=== PATIENT | female | born 1975 | race American Indian/Alaskan Native ===

== ENCOUNTER 2018-06-06 02:18 | Emergency (ER) | payer OTHER ==
[2018-06-06 02:52] VITALS: BP 127/89
[2018-06-06] MEDS ORDERED: DECADRON ONE (03:00)
[2018-06-06] MEDS ORDERED: DUONEB *Not for PRN Use IH ONE (03:04)
[2018-06-06] MEDS ORDERED: DECADRON IM ONE (03:06)
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
== END 2018-06-06 14:50 | disposition home or self-care (01) ==
LOC: ED 02:18
DX: R10.9 Unspecified abdominal pain (principal); R06.02 Shortness of breath; J45.909 Unspecified asthma, uncomplicated; Z88.6 Allergy status to analgesic agent; V89.2XXA Person injured in unspecified motor-vehicle accident, traffic, initial encounter; Y93.89 Activity, other specified; Y92.410 Unspecified street and highway as the place of occurrence of the external cause; Y99.8 Other external cause status
CPT/HCPCS: 74019; 76700; 96372; 99284; J1100

== ENCOUNTER 2019-03-07 13:27 | Emergency (ER) | payer OTHER ==
[2019-03-07] MEDS ORDERED: ALBUTEROL 2.5 MG/3 ML NEBU IH ONE (13:46)
[2019-03-07] MEDS ORDERED: methylPREDNISolone Sod Succinate 125 MG/2 ML INJ IM ONE (13:56)
[2019-03-07] MEDS: IPRATROPIUM 0.02% NEBU 2.5 ML IH ONE (13:58)
[2019-03-07] MEDS ORDERED: IPRATROPIUM 0.02% NEBU 2.5 ML IH ONE (14:01)
[2019-03-07 14:53] LABS: Basophils % (Auto) 0.5 % (0.0-1.8); Eosinophils # (Auto) 0.7 K/mm3 (0.0-0.4); Eosinophils % (Auto) 15.1 % (0.0-4.3); Hematocrit 41.2 % (30.3-42.9); Lymphocytes # (Auto) 1.8 K/mm3 (1.2-5.4); Lymphocytes % (Auto) 35.8 % (13.4-35.0); Mean Corpuscular HGB Conc 34 % (30-34); Mean Corpuscular Volume 94 fl (79-97); Monocytes # (Auto) 0.4 K/mm3 (0.0-0.8); Monocytes % (Auto) 8.2 % (0.0-7.3); Platelet Count 231 K/mm3 (140-440); Red Blood Count 4.39 M/mm3 (3.65-5.03); Red Cell Distribution Width 12.8 % (13.2-15.2)
--- NOTE | 2019-03-07 15:03 | Emergency Department Report ---
ED Asthma HPI - General Chief Complaint: Dyspnea/Respdistress Stated Complaint: ASTHMA ATTACK/SOB Time Seen by Provider: 03/07/19 13:56 Source: patient Mode of arrival: Ambulatory Limitations: No Limitations - History of Present Illness Initial Comments: She is a chronic asthmatic patient presents to ED with asthma patient. Patient states that she used her medication at home with no relief. She says for the past couple of days she has been flaring up with a dry cough. Patient states today after taking a breathing treatment she had no relief so she presents for evaluation. He denies fevers/chills/nausea vomiting or chest pain MD Complaint: "asthma attack", wheezing -: Gradual Asthma History: childhood onset Severity: moderate Context: none known Associated Symptoms: dry cough Treatments Prior to Arrival: inhaled bronchodilator - Related Data Current Asthma Therapy: inhaled bronchodilator Previous Rx's Medication Instructions Recorded Last Taken Type HYDROcodone/APAP 5-325 [[place] 1 each PO Q6HR PRN #10 tablet 06/06/18 Unknown Rx 5/325] ALBUTEROL Inhaler (OR & NICU) 2 puff IH Q4H PRN #1 inhalation 10/24/18 Unknown Rx [ProAir HFA Inhaler] ALBUTEROL NEB's [Proventil 0.083% 2.5 mg IH Q4H PRN #25 vial 10/24/18 Unknown Rx NEBS] Acetaminophen [Acetaminophen TAB] 1,000 mg PO Q6HR PRN #30 tablet 10/24/18 Unknown Rx Azithromycin [Zithromax Z-KATERINA] 250 mg PO DAILY #6 tab 10/24/18 Unknown Rx Benzonatate [Tessalon Perles] 100 mg PO Q8HR PRN #30 capsule 03/07/19 Unknown Rx predniSONE [Deltasone] 40 mg PO QDAY 5 Days #10 tab 03/07/19 Unknown Rx Allergies Allergy/AdvReac Type Severity Reaction Status Date / Time ibuprofen Allergy Shortness Verified 10/24/18 02:54 of Breath ED Review of Systems ROS: Stated complaint: ASTHMA ATTACK/SOB Other details as noted in HPI Comment: All other systems reviewed and negative ED Past Medical Hx - Past Medical History Previous Medical History?: Yes Hx Asthma: Yes - Surgical History Past Surgical History?: Yes Additional Surgical History: Sinus surgery - Social History Smoking Status: Never Smoker Substance Use Type: None - Medications Home Medications: Home Medications Medication Instructions Recorded Confirmed Last Taken Type HYDROcodone/APAP 5-325 [[place] 1 each PO Q6HR PRN #10 tablet 06/06/18 Unknown Rx 5/325] ALBUTEROL Inhaler (OR & NICU) 2 puff IH Q4H PRN #1 inhalation 10/24/18 Unknown Rx [ProAir HFA Inhaler] ALBUTEROL NEB's [Proventil 0.083% 2.5 mg IH Q4H PRN #25 vial 10/24/18 Unknown Rx NEBS] Acetaminophen [Acetaminophen TAB] 1,000 mg PO Q6HR PRN #30 tablet 10/24/18 Unknown Rx Azithromycin [Zithromax Z-KATERINA] 250 mg PO DAILY #6 tab 10/24/18 Unknown Rx Benzonatate [Tessalon Perles] 100 mg PO Q8HR PRN #30 capsule 03/07/19 Unknown Rx predniSONE [Deltasone] 40 mg PO QDAY 5 Days #10 tab 03/07/19 Unknown Rx ED Physical Exam - General Limitations: No Limitations General appearance: alert, in no apparent distress - Head Head exam: Present: atraumatic, normocephalic - Eye Eye exam: Present: normal appearance - ENT ENT exam: Present: mucous membranes moist - Neck Neck exam: Present: normal inspection - Respiratory Respiratory exam: Present: normal lung sounds bilaterally. Absent: respiratory distress - Cardiovascular Cardiovascular Exam: Present: regular rate, normal rhythm. Absent: systolic murmur, diastolic murmur, rubs, gallop - GI/Abdominal GI/Abdominal exam: Present: soft, normal bowel sounds - Extremities Exam Extremities exam: Present: normal inspection - Back Exam Back exam: Present: normal inspection - Neurological Exam Neurological exam: Present: alert, oriented X3 - Psychiatric Psychiatric exam: Present: normal affect, normal mood - Skin Skin exam: Present: warm, dry, intact, normal color. Absent: rash ED Course Vital Signs 03/07/19 03/07/19 03/07/19 13:37 15:25 17:23 Temperature 98.7 F Pulse Rate 95 H 90 Pulse Rate [ 91 H Posterior Bilateral Throughout] Respiratory 24 18 Rate Respiratory 20 Rate [Posterior Bilateral Throughout] Blood Pressure 128/94 Blood Pressure 124/90 [Left] O2 Sat by Pulse 95 99 Oximetry ED Medical Decision Making - Lab Data Result diagrams: 03/07/19 14:36 03/07/19 14:36 Laboratory Last Values WBC 4.9 K/mm3 (4.5-11.0) 03/07/19 14:36 RBC 4.39 M/mm3 (3.65-5.03) 03/07/19 14:36 Hgb 14.0 gm/dl (10.1-14.3) 03/07/19 14:36 Hct 41.2 % (30.3-42.9) 03/07/19 14:36 MCV 94 fl (79-97) 03/07/19 14:36 MCH 32 pg (28-32) 03/07/19 14:36 MCHC 34 % (30-34) 03/07/19 14:36 RDW 12.8 % (13.2-15.2) L 03/07/19 14:36 Plt Count 231 K/mm3 (140-440) 03/07/19 14:36 Lymph % (Auto) 35.8 % (13.4-35.0) H 03/07/19 14:36 [place] % (Auto) 8.2 % (0.0-7.3) H 03/07/19 14:36 Eos % (Auto) 15.1 % (0.0-4.3) H 03/07/19 14:36 Baso % (Auto) 0.5 % (0.0-1.8) 03/07/19 14:36 Lymph # 1.8 K/mm3 (1.2-5.4) 03/07/19 14:36 [place] # 0.4 K/mm3 (0.0-0.8) 03/07/19 14:36 Eos # 0.7 K/mm3 (0.0-0.4) H 03/07/19 14:36 Baso # 0.0 K/mm3 (0.0-0.1) 03/07/19 14:36 Seg Neutrophils % 40.4 % (40.0-70.0) 03/07/19 14:36 Seg Neutrophils # 2.0 K/mm3 (1.8-7.7) 03/07/19 14:36 VBG pH 7.417 (7.320-7.420) 03/07/19 14:36 Sodium 142 mmol/L (137-145) 03/07/19 14:36 Potassium 4.3 mmol/L (3.6-5.0) 03/07/19 14:36 Chloride 106.1 mmol/L (98-107) 03/07/19 14:36 Carbon Dioxide 25 mmol/L (22-30) 03/07/19 14:36 Anion Gap 15 mmol/L 03/07/19 14:36 BUN 8 mg/dL (7-17) 03/07/19 14:36 Creatinine 0.6 mg/dL (0.7-1.2) L 03/07/19 14:36 Estimated GFR > 60 ml/min 03/07/19 14:36 BUN/Creatinine Ratio 13 % 03/07/19 14:36 Glucose 94 mg/dL (65-100) 03/07/19 14:36 Calcium 8.9 mg/dL (8.4-10.2) 03/07/19 14:36 - Radiology Data Radiology results: report reviewed, image reviewed CHEST 2 VIEWS INDICATION: sob. COMPARISON: 10/24/2018 FINDINGS: Support devices: None. Heart: Within normal limits. Pulmonary vasculature: Normal. Lungs/pleura: No acute air space or interstitial disease. No pneumothorax. Additional findings: None. IMPRESSION: 1. No acute findings. Signer Name: Camelia Kirby MD Signed: 03/07/2019 3:20 PM Workstation Name: [id number] Transcribed By: REF Dictated By: CAMELIA KIRBY MD Electronically Authenticated By: CAMELIA KIRBY MD Signed Date/Time: 03/07/19 1520 - Medical Decision Making 43-year-old female presents with asthma exacerbation (Moderate) ED course: Patient received breathing treatment, and Solu-Medrol in the ED. Chest x-ray ordered, chest x-ray shows no acute findings. Patient had no respiratory distress in the ED. Post treatment evaluation: No wheezing heard, no use of accessory muscles, I discussed with the patient to follow up with her primary care physician. I discussed with the patient will be going home on with albuterol inhaler as well as nebulizer Vital signs are normalized, patient is saturation at 99% on room air. I discussed with the patient is symptoms worsen to return to ED immediately. Critical care attestation.: If time is entered above; I have spent that time in minutes in the direct care of this critically ill patient, excluding procedure time. ED Disposition Clinical Impression: Asthma exacerbation Disposition: DC-01 TO HOME OR SELFCARE Is pt being admited?: No Does the pt Need Aspirin: No Condition: Stable Instructions: Asthma (ED) Additional Instructions: Make sure to follow up with the primary care physician as discussed. Take all your medications as you've been prescribed. If you have any worsening symptoms or develop new symptoms please return to ED immediately. Prescriptions: predniSONE [Deltasone] 40 mg PO QDAY 5 Days #10 tab Benzonatate [Tessalon Perles] 100 mg PO Q8HR PRN #30 capsule PRN Reason: cough Referrals: YENNI ALAN MD [Primary Care Provider] - 3-5 Days Forms: Accompanied Note, Work/School Release Form(ED)
[2019-03-07 15:11] LABS: BUN/Creatinine Ratio 13; Blood Urea Nitrogen 8 mg/dL (7-17); Calcium 8.9 mg/dL (8.4-10.2); Hemolysis Index 67
[2019-03-07] MEDS ORDERED: IPRATROPIUM/ALBUTEROL SULFATE 3 ML AMPUL.NEB IH ONE (15:17)
--- NOTE | 2019-03-07 15:24 | XRay Report ---
CHEST 2 VIEWS INDICATION: sob. COMPARISON: 10/24/2018 FINDINGS: Support devices: None. Heart: Within normal limits. Pulmonary vasculature: Normal. Lungs/pleura: No acute air space or interstitial disease. No pneumothorax. Additional findings: None. IMPRESSION: 1. No acute findings. Signer Name: Rahul Atkinson MD Signed: 03/07/2019 3:20 PM Workstation Name: [id number]
[2019-03-07 17:24] VITALS: BP 124/90
== END 2019-03-07 17:23 | disposition home or self-care (01) ==
LOC: ED 13:27
DX: J45.901 Unspecified asthma with (acute) exacerbation (principal); Z79.899 Other long term (current) drug therapy; Z98.890 Other specified postprocedural states; Z88.6 Allergy status to analgesic agent
CPT/HCPCS: 36415; 71046; 80048; 82805; 85025; 93005; 93010; 94640; 94644; 96372; 99284; J2930